=== PATIENT | female | born 1945 | race Caucasian/White ===

== ENCOUNTER 2020-01-05 05:40 | Day surgery (SDC) | payer MEDICARE, BC ==
[2019-12-29 10:09] LABS: BASOPHILS % (AUTO) 0.4 % (0-1); EOSINOPHILS # (AUTO) 0.2 X10'3 (0-0.9); EOSINOPHILS % (AUTO) 3.7 % (0-6); LYMPHOCYTES # (AUTO) 1.7 X10'3 (1.1-4.8); LYMPHOCYTES % (AUTO) 30.5 % (21-51); MEAN CORPUSCULAR HEMOGLOBIN 30.4 PG (27.0-31.0); MEAN CORPUSCULAR HGB CONC 32.9 g/dL (33.0-36.5); MEAN CORPUSCULAR VOLUME 92.7 FL (78-98); MEAN PLATELET VOLUME 9.9 FL (7.4-10.4); MONOCYTES # (AUTO) 0.6 X10'3 (0-0.9); MONOCYTES % (AUTO) 11.4 % (2-12); PRE OP HEMATOCRIT 42.4 % (35.0-45.0); PRE OP HEMOGLOBIN 13.9 g/dL (12.0-16.0); PRE OP PLATELET COUNT 237 X10'3 (140-440); RED BLOOD COUNT 4.58 X10'6 (4.20-5.60); RED CELL DISTRIBUTION WIDTH 13.6 % (11.5-14.5)
[2019-12-29 10:27] LABS: ALBUMIN/GLOBULIN RATIO 1.3 (1.1-1.5); ALKALINE PHOSPHATASE 87 IU/L (46-116); BLOOD UREA NITROGEN 19 MG/DL (7-18); CALCIUM 9.2 MG/DL (8.5-10.1); CHLORIDE 107 MMOL/L (99-107); CREATININE 0.76 MG/DL (0.40-0.90); PRE OP ALT 26 U/L (30-65); PRE OP ANION GAP 8 (8-16); PRE OP AST 18 U/L (10-37); PRE OP BILIRUB, TOTAL 0.4 MG/DL (0.0-1.0); PRE OP GLUCOSE 72 MG/DL (70-104); PRE OP SODIUM 142 MMOL/L (135-145); TOTAL CARBON DIOXIDE 27.1 MMOL/L (24-32); eGFR 75 ML/MIN
[2019-12-29 10:30] LABS: PRE OP POTASSIUM 4.2 MMOL/L (3.4-5.1)
[2020-01-05] VITALS (10 sets, daily range): BP systolic 122–154; BP diastolic 64–94
[~2020-01-05] VITALS: Ht 175.3 cm; Wt 85.4 kg
[~2020-01-05 05:40] MED LIST: IBUP100T53 PO; LETR2.5T7 PO; VITA-268 PO; famotidine 20mg tablet PO ONE; ringers solution, lacted 1,000 ML IV SCH
[2020-01-05] MEDS ORDERED: ceFAZolin 2gm in dextrose, iso 50 ML IV ONE (06:00)
[2020-01-05] MEDS ORDERED: LIDOcaine 1% (10mg/ml) 2ml vial ONE (06:22)
[2020-01-05] MEDS ORDERED: LIDOcaine 1% 30ml preserv. free vial ONE (06:36)
[2020-01-05] MEDS ORDERED: BUPIVAcaine/PF 2.5 mg/ml (0.25%) 30ml vial ONE (06:37)
[2020-01-05] MEDS ORDERED: fentaNYL/PF 50MCG/1 ML 2ML syringe ONE (07:02)
[2020-01-05] MEDS ORDERED: midazolam 2 mg/2 ml injection ONE (07:02)
[2020-01-05] MEDS ORDERED: LIDOcaine 2% (20mg/ml) 5ml vial ONE (07:04)
[2020-01-05] MEDS ORDERED: dexamethasone sod phosphate 4mg/ml inj. ONE (07:04)
[2020-01-05] MEDS ORDERED: ketorolac trometh. 30mg/ml inj. ONE (07:04)
[2020-01-05] MEDS ORDERED: propofol inj 20 ML IV ONE (07:04)
[2020-01-05] MEDS ORDERED: ondansetron/PF 4mg/2ml inj ONE (07:05)
[2020-01-05] MEDS ORDERED: glycopyrrolate 0.2mg/ml inj ONE (07:05)
[2020-01-05] MEDS ORDERED: rocuronium 10mg/ml inj IV ONE (07:05)
[2020-01-05] MEDS ORDERED: neostigmine methylsulfate 1 MG/ML 10ml vial ONE (07:05)
[2020-01-05] MEDS ORDERED: acetaminophen 1,000mg/100ml IV 100 ML IV ONE (07:07)
[2020-01-05] MEDS ORDERED: ringers solution, lacted 1,000 ML IV SCH (07:14)
[2020-01-05] MEDS ORDERED: fentaNYL/PF 50MCG/1 ML 2ML syringe IV PRN ×2 (07:15)
[2020-01-05] MEDS ORDERED: proMETHazine 25mg rectal suppository RC PRN ×2 (07:15)
[2020-01-05] MEDS ORDERED: ondansetron/PF 4mg/2ml inj IV PRN (07:15)
[2020-01-05] MEDS ORDERED: morphine 4 MG/ML inj SYRINge IV PRN (07:15)
[2020-01-05] MEDS ORDERED: proCHLORperazine 10 MG/2 ml inj IV PRN (07:15)
[2020-01-05] MEDS ORDERED: hydrALAZINE 20mg/ml inj. IV PRN (07:15)
[2020-01-05] MEDS ORDERED: labetalol 20mg/4ml (5mg/ml) syringe IV PRN (07:15)
[2020-01-05] MEDS ORDERED: morphine 2 MG/ML inj. syringe IV PRN (07:15)
[2020-01-05] MEDS ORDERED: sevoflurane 250ml liquid IH ONE (07:30)
[2020-01-05] MEDS ORDERED: acetaminophen 325mg tablet PO PRN (08:45)
--- NOTE | 2020-01-05 08:46 | NUR ---
Received from OR via [facility], accompanied by Anesthesiologist DR HOLDEN and report given by Anesthesiolgist. PT PLACED ON O2 AND MONITOR, S/P RA LAP RIGHT INGUINAL HERNIA REPAIR, GENERAL ANESTH, PT HAS 3 LARGE BANDAIDS TO ABD ALL CDI, ABD SOFT, DENIES ANY PAIN OR NAUSEA AT THIS TIME, WILL CONT TO ASSESS. DR ENRIQUEZ SPOKE WITH PT AND CALLED PT'S .
--- NOTE | 2020-01-05 10:16 | NUR ---
PT DISCHARGED TO HOME, DC'D PIV INTRACATH INTACT, PT TOLERATED WELL, VOIDED QS WITHOUT DIFF, DISCHARGED INSTRUCTIONS GIVEN AND READ TO PT, QUESTIONS ENCOURAGED AND ANSWERED, PT VERBALIZR=ED UNDERSTANDING, PT LEFT VIA WHEELCHAIR ACCOMPANIED BY [facility] RN TO PRIVATE VEHICLE AND PT'S .
[2020-01-05] MEDS ORDERED: ibuprofen tablet 400 MG TABLET PO SCH (12:30)
== END 2020-01-05 10:16 | disposition home or self-care (01) ==
LOC: PAS 05:40
PROVIDERS: ATTEND Surgery
DX: K40.90 Unilateral inguinal hernia, without obstruction or gangrene, not specified as recurrent (principal); G43.909 Migraine, unspecified, not intractable, without status migrainosus; M19.90 Unspecified osteoarthritis, unspecified site; E66.9 Obesity, unspecified; Z68.27 Body mass index [BMI] 27.0-27.9, adult; Z11.59 Encounter for screening for other viral diseases; Z90.710 Acquired absence of both cervix and uterus; Z98.890 Other specified postprocedural states; Z90.12 Acquired absence of left breast and nipple; Z79.899 Other long term (current) drug therapy; Z72.89 Other problems related to lifestyle; Z96.641 Presence of right artificial hip joint; Z85.3 Personal history of malignant neoplasm of breast; Z86.19 Personal history of other infectious and parasitic diseases; Z83.6 Family history of other diseases of the respiratory system; Z80.1 Family history of malignant neoplasm of trachea, bronchus and lung
CPT/HCPCS: 36415; 49650; 80053; 82948; 85025; 93005; C1781; J0131; J1100; J1885; J2001; J2250; J2405; J2704; J2710; J3010; J3490; J7120; U0003; A4215; A4618